=== PATIENT | male | born 1935 | race Caucasian/White ===

== ENCOUNTER 2021-08-25 11:21 | Inpatient (IN) | payer MEDICARE, SELFPAY ==
[2021-08-25] VITALS (36 sets, daily range): BP systolic 129–164; BP diastolic 69–116; PULSE 56–75; RESP 16–26; TEMP 36.4–37.1; O2SAT 94–100; BMI 28.8
--- NOTE | ~2021-08-25 | XR_ITS ---
EXAM: XR hip BI 2V w AP pelvis DATE: 08/25/2021 15:44 HISTORY: pain . COMPARISON: None available. FINDINGS: Slightly decreased mineralization. No fracture or dislocation. No lytic or blastic lesion. Degenerative changes in the lumbar spine. Mild bilateral hip osteoarthritis. Scattered enthesopathy. No erosion or periosteal change. Soft tissues within normal limits. IMPRESSION: No acute osseous finding in the pelvis or bilateral hips. Reviewed, dictated and finalized at location K.
--- NOTE | ~2021-08-25 | XR_ITS ---
EXAMINATION: XR knee LT 2V, XR knee RT 2V DATE: 08/26/2021 00:52 INDICATION: Bilateral knee pain TECHNIQUE: 1. AP and lateral views of the left knee were obtained. 2. AP and lateral views of the right knee were obtained. COMPARISON: None. FINDINGS: Alignment is normal at the bilateral knees. No fracture. At least mild joint space narrowing the medi al compartment of the left knee with small right and moderate-sized left knee joint effusions. Promin ent enthesophytes at the bilateral patellae and anterior tibial tuberosities. Vascular calcifications posterior to the bilateral knees. IMPRESSION: 1. Small right and moderate-sized left knee joint effusions. No acute osseous abnormality. Reviewed, dictated and finalized at location A. IMPRESSION: 1. Small right and moderate-sized left knee joint effusions. No acute osseous a bnormality.
--- NOTE | ~2021-08-25 | XR_ITS ---
EXAMINATION: XR chest 1V portable DATE: 08/25/2021 13:29 INDICATION: Weakness. TECHNIQUE: frontal view of the chest was obtained. COMPARISON: None FINDINGS: The lungs are clear with no focal airspace opacities, pulmonary edema, pleural effusion or pneumothor ax. The cardiomediastinal silhouette is normal. Age-indeterminate anterior left sixth and seventh rib fractures. Surgical clips in the epigastric region. IMPRESSION: 1. No acute cardiopulmonary disease. Reviewed, dictated and finalized at location A.
--- NOTE | ~2021-08-25 | CT_ITS ---
EXAMINATION: CT brain wo con DATE: 08/25/2021 15:52 INDICATION: weakness . TECHNIQUE: Computed tomography (CT) of the head was performed without intravenous contrast. The mA wa s adjusted according to patient size. Iterative reconstruction technique was employed. The dose-lengt h product was 605.33 mGy-cm. COMPARISON: None FINDINGS: No acute intracranial hemorrhage or extra-axial fluid collection. No hydrocephalus, mass, or herniation. No acute ischemic infarct. Unremarkable dural venous sinus attenuation. No acute osseous abnormality. Right mastoid effusion, otherwise the aerated spaces are clear. Old right MCA territory infarct. Moderate atrophy. Mild chronic white matter change. Atherosclerotic intracranial calcifications. Bilateral lens replacements. IMPRESSION: No acute intracranial process. Reviewed, dictated and finalized at location K.
--- NOTE | 2021-08-25 12:28 | ECG_ITS ---
Measurements Intervals [place] Rate: 59 P: 79 HI: 220 QRS: -50 QRSD: 101 T: 84 QT: 412 QTc: 409 Interpretive Statements SINUS BRADYCARDIA VENTRICULAR PREMATURE COMPLEXES LOW QRS VOLTAGE IN PRECORDIAL LEADS LEFT ANTERIOR FASCICULAR BLOCK CANNOT RULE OUT SEPTAL INFARCT, AGE INDETERMINATE BORDERLINE ST-T WAVE ABNORMALITY- HIGH LATERAL LEADS BASELINE ARTIFACT- I, II, AVR, AVL, AVF, V3 ABNORMAL ECG Electronically Signed On 08-25-2021 17:12:35 CDT by Fabian Edwards D.O.
[2021-08-25 13:12] LABS: Basophils Absolute Auto 0.1 K/mm3 (0.0-0.1); Basophils Percent Auto 0.4 % (0.2-1.2); Eosinophils Absolute Auto 0.2 K/mm3 (0-0.3); Eosinophils Percent Auto 1.9 % (0-4.4); Hematocrit 44.9 % (42.0-52.0); Hemoglobin 15.1 g/dL (14.0-18.0); Immature Granulocyte Absolute 0.08 K/mm3 (0.00-0.031); Immature Granulocyte Percent A 0.7 % (0-0.5); Lymphocytes Percent Auto 19.5 % (18.3-44.2); Mean Corpuscular HGB Conc 33.6 g/dl (32-36); Mean Corpuscular Hemoglobin 29.3 pg (26-34); Monocytes Percent Auto 8.4 % (2.6-8.5); Neutrophils Absolute Auto 8.2 K/mm3 (1.3-6.7); Neutrophils Percent Auto 69.1 % (45.5-73.1); Platelet Count Result 210 k/mm3 (150-375); Red Blood Count 5.16 M/mm3 (4.6-6.20); Red Cell Distribution Width 13.5 % (11.5-14.5); White Blood Count 11.8 K/mm3 (4.5-10.0)
[2021-08-25 13:21] LABS: Alanine Aminotransferase 18 U/L (6-50); Albumin Level 4.3 g/dL (3.5-5.1); Alkaline Phosphatase 82 U/L (38-126); Anion Gap 9 mmol/L (8-16); Aspartate Amino Transferase 24 U/L (17-59); Bilirubin,Total 0.6 mg/dL (0.2-1.3); Blood Urea Nitrogen 20 mg/dL (9-20); Carbon Dioxide 23 mmol/L (22-30); Chloride 106 mmol/L (98-107); Estimated CRCL calculation 40 ml/min; Estimated Glomerular Filt Rate 44; Glucose 97 mg/dL (65-110); Magnesium 1.9 mg/dL (1.6-2.3); Potassium 4.6 mmol/L (3.4-5.0); Sodium 138 mmol/L (137-145)
--- NOTE | 2021-08-25 13:25 | ED.GENADULT ---
HPI - General Adult General Chief complaint: Extremity Problem,Nontraumatic Stated complaint: bilateral leg pain Time Seen by Provider: 08/25/21 12:05 Source: patient, family and RN notes reviewed Mode of arrival: EMS Limitations: dementia History of Present Illness HPI narrative: This is an 86 year old male with history of hypetension, dementia who presents from home with family. His daughter is at bedside. She states her brother the normally takes care of patient is out of town. She states this morning she was unable to get patient out of bed because he was complaining of pain to his feet. She states every time she touched him he complained about pain. Patient is oriented to person and place. He denies any complaints. His daughter states patient is normally able to get himself out of bed but today he seems to be week. She states she could not get him to lift his legs. They deny recent fall. Patient denies chest pain, nausea, vomiting, abdominal pain, or shortness of breath. Related Data Home Medications Medication Instructions Recorded Confirmed aspirin [Ecotrin Low Strength] 81 mg PO DAILY 08/25/21 08/25/21 cetirizine 10 mg PO DAILY 08/25/21 08/25/21 donepezil 10 mg PO HS 08/25/21 08/25/21 metoprolol tartrate 12.5 mg PO BID 08/25/21 08/25/21 nitroglycerin 0.3 mg SUBLINGUAL Q5-15M PRN 08/25/21 08/25/21 polyethylene glycol 3350 [ClearLax] 17 g PO PRN PRN 08/25/21 08/25/21 zinc oxide-cod liver oil [Desitin] 1 ea TOPICAL DAILY PRN 08/25/21 08/25/21 Allergies Allergy/AdvReac Type Severity Reaction Status Date / Time morphine Allergy Unknown Verified 08/25/21 11:36 Review of Systems Review of Systems: All systems reviewed & are unremarkable except as noted in HPI and below PMFSH Past Medical History Medical History (Updated 08/25/21 @ 21:45 by Sharda Kraus MD) Dementia Hypertension Surgical History Surgical History (Updated 08/25/21 @ 13:31 by Sharda Kraus MD) Surgical history unknown Family History Family History (Updated 08/25/21 @ 18:56 by Christine Fan RN) Father Acute myocardial infarction Sibling Diabetes mellitus Sibling FH: pancreatic cancer Social History Social History Years smoked: 10 Smoking status: Former smoker Tobacco type: cigarettes, pipe and cigars Alcohol intake: never Substance use: never Spiritual care concerns: No Exam Const: General: no acute distress and alert Other: oriented to person and place Eyes: EOM: EOMs intact bilaterally Resp: Effort & Inspection: normal respiratory effort and no retractions Auscultation: clear to auscultation bilaterally Cardio: Rate: regular rate Rhythm: regular rhythm Other: palpable bilateral pedal pulses GI: GI Palp: Yes Soft to palpation, No Tenderness to palpation present (GI), No Guarding due to palpation present (GI), No Rigid due to palpation and No Hernia present Auscultation: normal bowel sounds Skin: General skin exam: normal color Rashes: no rashes Neuro: General: moves all extremities, no meningeal signs, no focal motor deficits and CN's II-XI intact bilaterally Other: patient shaking and unsteady with ambulation, needed assistance. Family reports he normally walks unassisted Extrem: General: no pedal edema Psych: Mental Status: mental status grossly normal Affect: normal affect Course Reevaluation(s) Reevaluation #1: Nursing staff and I attempted to ambulate patient. Initially he took 2 steps and wanted to stop. He then was able to walk longer but he needed assistance and he was shaky/unsteady. Family states he is usually able to walk unassisted. He will be admitted for observation. I discussed case with kenzie Davidson who will admit. Date: 08/25/21 Time: 21:46 Vital Signs Vital signs: Vital Signs Temperature 97.6 F 08/25/21 11:26 Pulse Rate 63 08/25/21 11:26 Respiratory Rate 25 H 08/25/21 11:26 Blood Pressure 157/78 H 08/25/21 11:26 Pulse Oximetry 10
[2021-08-25 13:26] LABS: INR 1.2; Prothrombin Time 15.1 Seconds (11.1-14.7)
[2021-08-25 13:27] LABS: Partial Thromboplastin Time 30.8 SECONDS (22.3-36.8)
[2021-08-25 13:30] LABS: NT Pro B Type Natriuretic Pept 1400 pg/mL (5-100)
[2021-08-25 13:46] LABS: SARS-CoV-2 RNA PCR Negative
[2021-08-25 14:21] LABS: Appearance Urine Clear (Clear); Bilirubin Urine Negative (Negative); Blood Urine 1+ (Negative); Color Urine Yellow (Yellow); Glucose Urine UA Negative (Negative); Ketones Urine Negative (Negative); Leukocyte Esterase Ur Negative LEU/UL (Negative); Nitrate Urine Negative (Negative); Protein Urine Negative (Negative); Specific Grav Ur 1.015 (1.001-1.035); Urobilinogen Urine 0.2 mg/dL (<2.0)
[2021-08-25 14:25] LABS: Squamous Epithelial Cell Urine Rare /hpf (Few); WBC Urine 0-3 /hpf
[2021-08-25 14:41] LABS: Add Urine Microscopic? YES
[2021-08-25] MEDS: SODIUM CHLORIDE 0.9% IV 1,000 ML 999 ML IV CONT (15:00)
--- NOTE | 2021-08-25 15:35 | PC.NURSE ---
PATIENT DAUGHTER TAKING HOME PATIENT CLOTHING.
--- NOTE | 2021-08-25 17:30 | PM.IMHP ---
H&P: HPI History of Present Illness Date/Time: 08/25/21 17:30 Chief Complaint: Leg pain. Narrative: This is an 86-year-old male with history of stroke, dementia, coronary artery disease, hypertension, kidney cancer, colon cancer, prostate cancer, and benign prostatic hyperplasia who presented to the emergency department via EMS for evaluation of leg pain. He is not able to provide an accurate history given his significant short-term memory loss. His and daughter at bedside provide additional history however his seems to be quite forgetful as well and his daughter is not typically his primary caregiver. The patient and his live with their son and [id number] who have been out of town and they are currently staying at their daughter's home. It is my understanding that the patient does need some help when getting out of bed in the morning however I was told that he ambulates freely and unassisted thereafter. This morning his daughter was unable to help him out of bed and when she grabbed his legs to lift them up he hollered out in pain. Labs were reviewed and they are pretty unremarkable aside from a white blood cell count of 11.8 and a creatinine of 1.50. Unfortunately he has not had labs sent this facility thus I am not certain of his baseline renal function. Brain CT, chest x-ray, and hip and pelvis imaging showed no acute findings. Staff in the ER encouraged him to ambulate and he was able to take 10 steps with assistance and said he could go no further. At the time my evaluation his only complaint is that of pain in his bottom due to lying on the gurney. He did not know that he was at the hospital and was unable to tell me in what contacts he was brought here today. He denied pain when questioned however on exam he did report pain in both of his knees both with flexion and extension. Family members deny that he has had any recent falls. No recent cold or flu symptoms. They have not noticed slurred speech, facial droop, or focal weakness. The patient has not complained of anything to them aside from this morning. Review of Systems Review of Systems: Unable to obtain accurately given his severe short-term memory loss. He stated no to every question asked of him. [facility] Past Medical History Medical History (Updated 08/25/21 @ 23:37 by Janki Davidson PA-C) Cancer of kidney Status post nephrectomy. No adjuvant treatment. Cerebrovascular accident with intracranial hemorrhage Colon cancer Status post partial colectomy. No adjuvant treatment. Coronary artery disease Dementia Hypertension Prostate cancer Surgical History Surgical History (Updated 08/25/21 @ 23:25 by Janki Davidson PA-C) History of cardiac catheterization History of cataract extraction History of coronary artery stent placement History of nephrectomy History of partial colectomy Family History Family History Father Acute myocardial infarction Sibling Diabetes mellitus Sibling FH: pancreatic cancer Social History Social History (Updated 08/25/21 @ 23:33 by Janki Davidson PA-C) Social History: Surrogate decision maker: Mian Driver, son. Code status: Full code. Years smoked: 10 Smoking status: Former smoker Tobacco type: cigarettes, pipe and cigars Alcohol intake: never Substance use: never Living arrangements: with family Additional occupation/education comments: Retired from the [employer]. Spiritual care concerns: No Meds Home Medications and Allergies Home Medications Medication Instructions Recorded Confirmed Type aspirin [Ecotrin Low Strength] 81 mg PO DAILY 08/25/21 08/25/21 History cetirizine 10 mg PO DAILY 08/25/21 08/25/21 History donepezil 10 mg PO HS 08/25/21 08/25/21 History metoprolol tartrate 12.5 mg PO BID 08/25/21 08/25/21 History nitroglycerin 0.3 mg SUBLINGUAL Q5-15M PRN 08/25/21 08/25/21 History polyethylene glycol 3350 [Matthew
--- NOTE | 2021-08-25 18:29 | ADMGEN ---
This patient, Brooks Driver, was admitted to Medical Room 249-01. Patient/family oriented to hospital policies and general routines including ID bracelet, bed and alarms, visiting hours, pain management, procedures, bathroom and other care routines, personal items, smoking policy, room service/diet, and visiting hours. Information on how to activate the Rapid Response Team has been discussed. Patient/Family are encouraged to report perceived risks to care and to ask questions if they do not understand what they are told or what they should do.
[2021-08-26] VITALS (14 sets, daily range): BP systolic 111–133; BP diastolic 42–72; PULSE 58–73; RESP 18–21; TEMP 36.1–37; O2SAT 97–100
[2021-08-26] MEDS: SODIUM CHLORIDE 0.9% IV 1,000 ML 100 ML IV CONT (00:32)
[2021-08-26] MEDS: DONEPEZIL HCL 10 MG TABLET PO ×2 (00:33→20:20)
[2021-08-26] MEDS: METOPROLOL TARTRATE 12.5 MG TABLET PO ×3 (00:33→20:20)
--- NOTE | 2021-08-26 03:52 | PC.NURSE ---
Addendum entered by Gracie Carrera RN 08/26/21 03:53: bladder scan was done at 2230 08/25/21 Original Note: bladder scanned pt, pt had 228 ml of urine
[2021-08-26 05:41] LABS: Hematocrit 41.9 % (42.0-52.0); Hemoglobin 13.6 g/dL (14.0-18.0); Mean Corpuscular HGB Conc 32.5 g/dl (32-36); Mean Corpuscular Hemoglobin 29.8 pg (26-34); Mean Corpuscular Volume 91.7 fl (80-100); Mean Platelet Volume 9.9 fl (7.4-10.4); Platelet Count Result 176 k/mm3 (150-375); Red Blood Count 4.57 M/mm3 (4.6-6.20); Red Cell Distribution Width 13.8 % (11.5-14.5); White Blood Count 8.7 K/mm3 (4.5-10.0)
[2021-08-26 05:50] LABS: Alanine Aminotransferase 16 U/L (6-50); Albumin Level 3.3 g/dL (3.5-5.1); Alkaline Phosphatase 63 U/L (38-126); Anion Gap 9 mmol/L (8-16); Aspartate Amino Transferase 23 U/L (17-59); Bilirubin,Total 0.7 mg/dL (0.2-1.3); Blood Urea Nitrogen 18 mg/dL (9-20); CRP 1.9 mg/dL (<1.0); Calcium 8.4 mg/dL (8.4-10.2); Carbon Dioxide 23 mmol/L (22-30); Chloride 114 mmol/L (98-107); Creatine Kinase 45 U/L (55-170); Estimated CRCL calculation 34 ml/min; Estimated Glomerular Filt Rate 48; Glucose 103 mg/dL (65-110); Magnesium 1.9 mg/dL (1.6-2.3); Potassium 5.4 mmol/L (3.4-5.0); Sodium 146 mmol/L (137-145)
[2021-08-26] MEDS: LORATADINE 10 MG TABLET PO (09:33)
[2021-08-26] MEDS: ASPIRIN 81 MG ENTERIC TABLET PO (09:33)
[2021-08-26] MEDS: SODIUM POLYSTYRENE SULFONONATE 15 GM/60 ML BTL PO (09:33)
--- NOTE | 2021-08-26 10:02 | PCSTNOTE ---
Please refer to the Bedside Swallow Evaluation in the EMR. Please note, silent aspiration cannot be ruled out at bedside.
--- NOTE | 2021-08-26 10:35 | PM.IMPN ---
Progress Note: A&P Assessment and Plan (1) Bilateral knee pain: Code(s): M25.561 - Pain in right knee; M25.562 - Pain in left knee Status: Acute Assessment and Plan: No gross abnormalities on physical exam. Family members deny recent falls. Radiographs ordered for completeness sake. (2) Generalized weakness: Code(s): R53.1 - Weakness Status: Acute Assessment and Plan: He reportedly is able to ambulate quite well unassisted. In the ER he refused to walk any more than 10 steps. No history to suggest underlying infection or focal lesion. PT/OT consulted; fall precautions initiated. (3) Elevated serum creatinine: Code(s): R79.89 - Other specified abnormal findings of blood chemistry Status: Acute Assessment and Plan: He appears a bit dry on exam thus will hydrate overnight. Records requested from primary care provider for review. Check bladder scan to ensure he is not retaining urine. (4) Leukocytosis: Code(s): D72.829 - Elevated white blood cell count, unspecified Status: Acute Assessment and Plan: No history or evidence to suggest active infection. (5) Dementia: Code(s): F03.90 - Unspecified dementia without behavioral disturbance Status: Acute Assessment and Plan: Continue donepezil. Initiate fall precautions. (6) Hypertension: Code(s): I10 - Essential (primary) hypertension Status: Acute Assessment and Plan: Blood pressures were reviewed and they have been running a bit high. Continue metoprolol and monitor daily. Subjective Date/time seen: 08/26/21 10:35 No complaints patient is pleasant Exam Narrative: General: Well-developed male appearing a bit younger than his stated age in the semi-Wolf position in bed in no acute distress. Weight 91.3 kg. BMI: 28.9. HEENT: PERRL, EOMI. Sclerae anicteric. Tacky mucous membranes. Oropharynx is crowded. Neck: Supple. No obvious JVD or bruits. Respiratory: Respirations are nonlabored and lungs are clear to auscultation. Cardiovascular: Regular rate and rhythm with S1-S2. Gastrointestinal: Abdomen is soft, nontender, and nondistended with positive bowel sounds. Skin: Warm and dry. No rash or lesions on limited exam. Extremities: No cyanosis or clubbing. Trace pretibial edema around the sock line. Radial and pedal pulses intact. Negative Milana sign bilaterally. Musculoskeletal: Patient complains of palpation over the anterior knees bilaterally. No swelling or bruising about the knees. No pain with passive range of motion in the hips. Strength 3/5 in bilateral hip flexors, likely due to lack of effort. Neurological: Alert to name and date of only. Cranial nerves 2-12 are grossly intact. Speech is occasionally stuttering which family members state is his baseline. Speech is not garbled. No pronator drift. He did not understand how to perform [id number] and rapid alternating movements. Psychiatric: Pleasantly confused and cooperative. Objective Data Vital Signs Vital Signs: Vital Signs - 24 hr 08/25/21 11:26 08/25/21 11:34 08/25/21 11:35 Temperature 97.6 F Pulse Rate 63 63 Respiratory Rate 25 H 26 H Blood Pressure 157/78 H 157/78 H Pulse Oximetry 100 100 99 08/25/21 11:45 08/25/21 11:47 08/25/21 12:00 Temperature Pulse Rate 60 59 L Respiratory Rate Blood Pressure 147/71 H Pulse Oximetry 100 99 100 08/25/21 12:02 08/25/21 12:15 08/25/21 12:17 Temperature Pulse Rate 62 59 L 61 Respiratory Rate Blood Pressure 153/70 H 163/83 H Pulse Oximetry 100 100 99 08/25/21 12:30 08/25/21 12:45 08/25/21 12:48 Temperature Pulse Rate 63 61 56 L Respiratory Rate Blood Pressure 149/70 H Pulse Oximetry 100 08/25/21 13:02 08/25/21 13:17 08/25/21 13:32 Temperature Pulse Rate Respiratory Rate Blood Pressure 149/74 H 155/82 H 155/81 H Pulse Oximetry 08/25/21 13:47
[2021-08-27] VITALS (15 sets, daily range): BP systolic 110–128; BP diastolic 51–95; PULSE 62–75; RESP 18–21; TEMP 36.4–37.6; O2SAT 99–100
[2021-08-27 08:57] LABS: Anion Gap 7 mmol/L (8-16); Blood Urea Nitrogen 20 mg/dL (9-20); Calcium 8.5 mg/dL (8.4-10.2); Carbon Dioxide 24 mmol/L (22-30); Chloride 107 mmol/L (98-107); Estimated CRCL calculation 37 ml/min; Estimated Glomerular Filt Rate 52; Glucose 100 mg/dL (65-110); Potassium 4.8 mmol/L (3.4-5.0); Sodium 138 mmol/L (137-145)
[2021-08-27] MEDS: METOPROLOL TARTRATE 12.5 MG TABLET PO ×2 (09:38→20:24)
[2021-08-27] MEDS: LORATADINE 10 MG TABLET PO (09:39)
[2021-08-27] MEDS: ASPIRIN 81 MG ENTERIC TABLET PO (09:39)
--- NOTE | 2021-08-27 11:37 | PM.IMPN ---
Progress Note: A&P Assessment and Plan (1) Bilateral knee pain: Code(s): M25.561 - Pain in right knee; M25.562 - Pain in left knee Status: Acute Assessment and Plan: No gross abnormalities on physical exam. Family members deny recent falls. Radiographs ordered for completeness sake. (2) Generalized weakness: Code(s): R53.1 - Weakness Status: Acute Assessment and Plan: He reportedly is able to ambulate quite well unassisted. In the ER he refused to walk any more than 10 steps. No history to suggest underlying infection or focal lesion. PT/OT consulted; fall precautions initiated. (3) Elevated serum creatinine: Code(s): R79.89 - Other specified abnormal findings of blood chemistry Status: Acute Assessment and Plan: He appears a bit dry on exam thus will hydrate overnight. Records requested from primary care provider for review. Check bladder scan to ensure he is not retaining urine. (4) Leukocytosis: Code(s): D72.829 - Elevated white blood cell count, unspecified Status: Acute Assessment and Plan: No history or evidence to suggest active infection. (5) Dementia: Code(s): F03.90 - Unspecified dementia without behavioral disturbance Status: Acute Assessment and Plan: Continue donepezil. Initiate fall precautions. (6) Hypertension: Code(s): I10 - Essential (primary) hypertension Status: Acute Assessment and Plan: Blood pressures were reviewed and they have been running a bit high. Continue metoprolol and monitor daily. Subjective Date/time seen: 08/27/21 11:37 No new complaints Exam Narrative: General: Well-developed male appearing a bit younger than his stated age in the semi-Wolf position in bed in no acute distress. Weight 91.3 kg. BMI: 28.9. HEENT: PERRL, EOMI. Sclerae anicteric. Tacky mucous membranes. Oropharynx is crowded. Neck: Supple. No obvious JVD or bruits. Respiratory: Respirations are nonlabored and lungs are clear to auscultation. Cardiovascular: Regular rate and rhythm with S1-S2. Gastrointestinal: Abdomen is soft, nontender, and nondistended with positive bowel sounds. Skin: Warm and dry. No rash or lesions on limited exam. Extremities: No cyanosis or clubbing. Trace pretibial edema around the sock line. Radial and pedal pulses intact. Negative Milana sign bilaterally. Musculoskeletal: Patient complains of palpation over the anterior knees bilaterally. No swelling or bruising about the knees. No pain with passive range of motion in the hips. Strength 3/5 in bilateral hip flexors, likely due to lack of effort. Neurological: Alert to name and date of only. Cranial nerves 2-12 are grossly intact. Speech is occasionally stuttering which family members state is his baseline. Speech is not garbled. No pronator drift. He did not understand how to perform [id number] and rapid alternating movements. Psychiatric: Pleasantly confused and cooperative. Objective Data Vital Signs Vital Signs: Vital Signs - 24 hr 08/26/21 12:00 08/26/21 14:00 08/26/21 16:00 Temperature 98.6 F Pulse Rate 60 58 L 66 Respiratory Rate 18 Blood Pressure 111/56 L Pulse Oximetry 100 08/26/21 16:22 08/26/21 16:52 08/26/21 20:00 Temperature Pulse Rate 66 Respiratory Rate Blood Pressure 119/62 Pulse Oximetry 97 08/26/21 20:20 08/26/21 22:00 08/27/21 00:00 Temperature 97.4 F L Pulse Rate 67 67 72 Respiratory Rate 21 H Blood Pressure 133/61 Pulse Oximetry 100 08/27/21 04:00 08/27/21 06:00 08/27/21 08:03 Temperature 97.7 F Pulse Rate 67 69 62 Respiratory Rate 21 H Blood Pressure 123/60 Pulse Oximetry 100 08/27/21 09:38 08/27/21 09:40 Temperature Pulse Rate 72 Respiratory Rate 20 Blood Pressure Pulse Oximetry 100 Intake/Output Intake/Output: Intake & Output 08/24/21 08/25/21 08/26/21 08/27/21 23:59 23:
[2021-08-27] MEDS: DONEPEZIL HCL 10 MG TABLET PO (20:24)
[2021-08-28] VITALS (13 sets, daily range): BP systolic 75–120; BP diastolic 41–57; PULSE 52–72; RESP 14–20; TEMP 36.3–37.1; O2SAT 96–100; BMI 10.0
--- NOTE | 2021-08-28 10:00 | PM.DS ---
DS: Admitting Diagnosis Discharge Date August 28, 2021 Admitting Diagnosis failure to thrive, weakness DS: Discharge Diagnosis Discharge Diagnosis (1) Bilateral knee pain: Code(s): M25.561 - Pain in right knee; M25.562 - Pain in left knee Status: Acute Assessment and Plan: x-rays noted no intervention required at this time (2) Generalized weakness: Code(s): R53.1 - Weakness Status: Acute Assessment and Plan: Improved. Question etiology. According sinus complaining of some pain or least acting like he was in pain however today is a little 14feet with a wheeled walker without any complaints. according the nursing staff (3) Elevated serum creatinine: Code(s): R79.89 - Other specified abnormal findings of blood chemistry Status: Acute Assessment and Plan: likely from dehydration. Serum creatinine improved. (4) Leukocytosis: Code(s): D72.829 - Elevated white blood cell count, unspecified Status: Acute Assessment and Plan: No history or evidence to suggest active infection. (5) Dementia: Code(s): F03.90 - Unspecified dementia without behavioral disturbance Status: Acute Assessment and Plan: Continue donepezil. Initiate fall precautions. (6) Hypertension: Code(s): I10 - Essential (primary) hypertension Status: Acute Assessment and Plan: Blood pressures were reviewed and they have been running a bit high. Continue metoprolol and monitor daily. Plan failure to thrive, weakness DS: Summary Hospital Course Reason for hospitalization: patient was admitted for weakness and possible lower extremity pain. Evaluation did not reveal anything significant. He was mildly dehydrated when he came in with an elevated white count likely from dehydration and concentration as well. Patient was given some IV fluids and labs improved. Today I spoke with the son and said that he was wincing and acting like he was having pain when standing and getting out of bed at home is Friday I spoke with the nursing staff today they said he was walked 14feet with a wheeled walker and did not really complain of much pain. I question if this is just worsening of his dementia. Hospital Course: see above Time Spent with Patient Time attestation: Total time spent providing and/or coordinating discharge services: Exam Narrative: General: Well-developed male appearing a bit younger than his stated age in the semi-Wolf position in bed in no acute distress. Weight 91.3 kg. BMI: 28.9. HEENT: PERRL, EOMI. Sclerae anicteric. Tacky mucous membranes. Oropharynx is crowded. Neck: Supple. No obvious JVD or bruits. Respiratory: Respirations are nonlabored and lungs are clear to auscultation. Cardiovascular: Regular rate and rhythm with S1-S2. Gastrointestinal: Abdomen is soft, nontender, and nondistended with positive bowel sounds. Skin: Warm and dry. No rash or lesions on limited exam. Extremities: No cyanosis or clubbing. Trace pretibial edema around the sock line. Radial and pedal pulses intact. Negative Milana sign bilaterally. Musculoskeletal: Patient complains of palpation over the anterior knees bilaterally. No swelling or bruising about the knees. No pain with passive range of motion in the hips. Strength 3/5 in bilateral hip flexors, likely due to lack of effort. Neurological: Alert to name and date of only. Cranial nerves 2-12 are grossly intact. Speech is occasionally stuttering which family members state is his baseline. Speech is not garbled. No pronator drift. He did not understand how to perform [id number] and rapid alternating movements. Psychiatric: Pleasantly confused and cooperative. Discharge Plan Discharge Attending physician on discharge: Edwin Dailey Discharging Clinician: Edwin Dailey. Patient Disposition: Home Health Service Activity: no preference Diet: as
[2021-08-28] MEDS: LORATADINE 10 MG TABLET PO (10:02)
[2021-08-28] MEDS: METOPROLOL TARTRATE 12.5 MG TABLET PO (10:02)
[2021-08-28] MEDS: ZINC OXIDE 20% OINT 30 GM TUBE 1 APPLIC TOPICAL (10:03)
[2021-08-28] MEDS: ASPIRIN 81 MG ENTERIC TABLET PO (10:03)
--- NOTE | 2021-08-28 14:50 | PM.IMPN ---
Progress Note: A&P Assessment and Plan (1) Bilateral knee pain: Code(s): M25.561 - Pain in right knee; M25.562 - Pain in left knee Status: Acute Assessment and Plan: x-rays noted no intervention required at this time (2) Generalized weakness: Code(s): R53.1 - Weakness Status: Acute Assessment and Plan: Improved. Question etiology. According sinus complaining of some pain or least acting like he was in pain however today is a little 14feet with a wheeled walker without any complaints. according the nursing staff (3) Elevated serum creatinine: Code(s): R79.89 - Other specified abnormal findings of blood chemistry Status: Acute Assessment and Plan: likely from dehydration. Serum creatinine improved. (4) Leukocytosis: Code(s): D72.829 - Elevated white blood cell count, unspecified Status: Acute Assessment and Plan: No history or evidence to suggest active infection. (5) Dementia: Code(s): F03.90 - Unspecified dementia without behavioral disturbance Status: Acute Assessment and Plan: Continue donepezil. Initiate fall precautions. (6) Hypertension: Code(s): I10 - Essential (primary) hypertension Status: Acute Assessment and Plan: Blood pressures were reviewed and they have been running a bit high. adjust bp meds 2/2 orthostasis (7) Orthostatic hypotension: Code(s): I95.1 - Orthostatic hypotension Status: Acute Assessment and Plan: decrease bp med and recheck possible dc tomorrow if this resolves Plan failure to thrive, weakness Subjective Date/time seen: 08/28/21 14:50 dc help up because patient has orthostatic hypotension w mild dizziness Exam Narrative: General: Well-developed male appearing a bit younger than his stated age in the semi-Wolf position in bed in no acute distress. Weight 91.3 kg. BMI: 28.9. HEENT: PERRL, EOMI. Sclerae anicteric. Tacky mucous membranes. Oropharynx is crowded. Neck: Supple. No obvious JVD or bruits. Respiratory: Respirations are nonlabored and lungs are clear to auscultation. Cardiovascular: Regular rate and rhythm with S1-S2. Gastrointestinal: Abdomen is soft, nontender, and nondistended with positive bowel sounds. Skin: Warm and dry. No rash or lesions on limited exam. Extremities: No cyanosis or clubbing. Trace pretibial edema around the sock line. Radial and pedal pulses intact. Negative Milana sign bilaterally. Musculoskeletal: Patient complains of palpation over the anterior knees bilaterally. No swelling or bruising about the knees. No pain with passive range of motion in the hips. Strength 3/5 in bilateral hip flexors, likely due to lack of effort. Neurological: Alert to name and date of only. Cranial nerves 2-12 are grossly intact. Speech is occasionally stuttering which family members state is his baseline. Speech is not garbled. No pronator drift. He did not understand how to perform [id number] and rapid alternating movements. Psychiatric: Pleasantly confused and cooperative. Objective Data Vital Signs Vital Signs: Vital Signs - 24 hr 08/27/21 16:03 08/27/21 18:38 08/27/21 20:00 Temperature 99.6 F 97.5 F L Pulse Rate 66 65 Respiratory Rate 20 Blood Pressure 110/95 H Pulse Oximetry 100 Oxygen Delivery 08/27/21 20:34 08/27/21 20:24 08/27/21 20:28 Temperature 97.5 F L Pulse Rate 65 66 65 Respiratory Rate 20 Blood Pressure 110/95 H Pulse Oximetry 100 99 Oxygen Delivery Room Air 08/27/21 20:33 08/27/21 20:33 08/27/21 20:00 Temperature 97.5 F L 97.5 F L Pulse Rate 70 75 70 Respiratory Rate 20 20 Blood Pressure 121/51 L 123/64 Pulse Oximetry 99 100 Oxygen Delivery 08/28/21 00:00 08/28/21 05:59 08/28/21 04:00 Temperature 98 F Pulse Rate 60 72 60 Respiratory Rate 20 Blood Pressure 110/57 L Pulse Oximetry 99 Oxygen Delivery
[2021-08-28] MEDS: DONEPEZIL HCL 10 MG TABLET PO (20:00)
[2021-08-29] VITALS (14 sets, daily range): BP systolic 108–146; BP diastolic 54–86; PULSE 60–94; RESP 17–18; TEMP 36.4–36.8; O2SAT 95–99
[2021-08-29] MEDS: LORATADINE 10 MG TABLET PO (08:52)
[2021-08-29] MEDS: ASPIRIN 81 MG ENTERIC TABLET PO (08:52)
--- NOTE | 2021-08-29 15:39 | PM.IMPN ---
Progress Note: A&P Assessment and Plan (1) Bilateral knee pain: Code(s): M25.561 - Pain in right knee; M25.562 - Pain in left knee Status: Acute Assessment and Plan: x-rays noted no intervention required at this time 08/29/2021 interval history: 86-year-old male admitted with generalized weak and bilateral knee pain today patient he continue to have a pain in his lower extremity, nursing staff assist the patient to stand up and ambulate however patient was quite hypotension his hypertensive medication on hold as patient has orthostatic, will add midodrine 2.5 mg t.i.d. will monitor will have a PT OT work with the patient and further recommendation to follow, patient will need placement as family is unable to take care of him. (2) Generalized weakness: Code(s): R53.1 - Weakness Status: Acute Assessment and Plan: Improved. Question etiology. According sinus complaining of some pain or least acting like he was in pain however today is a little 14feet with a wheeled walker without any complaints. according the nursing staff (3) Elevated serum creatinine: Code(s): R79.89 - Other specified abnormal findings of blood chemistry Status: Acute Assessment and Plan: likely from dehydration. Serum creatinine improved. (4) Leukocytosis: Code(s): D72.829 - Elevated white blood cell count, unspecified Status: Acute Assessment and Plan: No history or evidence to suggest active infection. (5) Dementia: Code(s): F03.90 - Unspecified dementia without behavioral disturbance Status: Acute Assessment and Plan: Continue donepezil. Initiate fall precautions. (6) Hypertension: Code(s): I10 - Essential (primary) hypertension Status: Acute Assessment and Plan: Blood pressures were reviewed and they have been running a bit high. adjust bp meds 2/2 orthostasis (7) Orthostatic hypotension: Code(s): I95.1 - Orthostatic hypotension Status: Acute Assessment and Plan: decrease bp med and recheck possible dc tomorrow if this resolves Plan failure to thrive, weakness Subjective Date/time seen: 08/29/21 15:39 08/29/2021 interval history: 86-year-old male admitted with generalized weak and bilateral knee pain today patient he continue to have a pain in his lower extremity, nursing staff assist the patient to stand up and ambulate however patient was quite hypotension his hypertensive medication on hold as patient has orthostatic, will add midodrine 2.5 mg t.i.d. will monitor will have a PT OT work with the patient and further recommendation to follow, patient will need placement as family is unable to take care of him. Review of Systems Review of Systems: Unable to obtain accurately given his severe short-term memory loss. He stated no to every question asked of him. Exam Narrative: elderly frail Patient is comfortable, NAD HEENT: eyes are clear and none icteric LUNGS: normal respiratory effort ABD: not distended Lower extremities: no edema SKIN: nonjaundiced Neuro: grossly intact. Objective Data Vital Signs Vital Signs: Vital Signs - 24 hr 08/28/21 16:00 08/28/21 19:48 08/28/21 19:49 Temperature 98.7 F Pulse Rate 58 L 63 Respiratory Rate 14 Blood Pressure 120/50 L 120/50 L Pulse Oximetry 96 Oxygen Delivery 08/28/21 20:03 08/28/21 20:00 08/28/21 20:00 Temperature Pulse Rate 59 L Respiratory Rate Blood Pressure 118/56 L Pulse Oximetry Oxygen Delivery Room Air 08/29/21 00:00 08/29/21 04:00 08/29/21 06:00 Temperature 98.3 F Pulse Rate 64 64 67 Respiratory Rate 18 Blood Pressure 129/86 Pulse Oximetry 95 Oxygen Delivery 08/29/21 08:00 08/29/21 08:55 08/29/21 13:30 Temperature Pulse Rate 62 63 Respiratory Rate Blood Pressure 114/67 Pulse Oximetry Oxygen Delivery Room Air 08/29/21 13:30 08/29/21
[2021-08-29] MEDS: MIDODRINE HCL 2.5 MG TABLET PO (16:59)
[2021-08-29] MEDS: DONEPEZIL HCL 10 MG TABLET PO (20:37)
[2021-08-30] VITALS (7 sets, daily range): BP systolic 109–140; BP diastolic 65–76; PULSE 57–68; RESP 18; TEMP 36.1; O2SAT 99
[2021-08-30] MEDS: MIDODRINE HCL 2.5 MG TABLET PO (07:47)
[2021-08-30] MEDS: LORATADINE 10 MG TABLET PO (07:47)
[2021-08-30] MEDS: ASPIRIN 81 MG ENTERIC TABLET PO (07:47)
--- NOTE | 2021-08-30 12:26 | PM.DS ---
DS: Admitting Diagnosis Discharge Date 08/30/2021 Admitting Diagnosis lower extremity weakness DS: Discharge Diagnosis Discharge Diagnosis (1) Bilateral knee pain: Code(s): M25.561 - Pain in right knee; M25.562 - Pain in left knee Status: Acute Assessment and Plan: x-rays noted no intervention required at this time 08/29/2021 interval history: 86-year-old male admitted with generalized weak and bilateral knee pain today patient he continue to have a pain in his lower extremity, nursing staff assist the patient to stand up and ambulate however patient was quite hypotension his hypertensive medication on hold as patient has orthostatic, will add midodrine 2.5 mg t.i.d. will monitor will have a PT OT work with the patient and further recommendation to follow, patient will need placement as family is unable to take care of him. (2) Generalized weakness: Code(s): R53.1 - Weakness Status: Acute Assessment and Plan: Improved. Question etiology. According sinus complaining of some pain or least acting like he was in pain however today is a little 14feet with a wheeled walker without any complaints. according the nursing staff (3) Elevated serum creatinine: Code(s): R79.89 - Other specified abnormal findings of blood chemistry Status: Acute Assessment and Plan: likely from dehydration. Serum creatinine improved. (4) Leukocytosis: Code(s): D72.829 - Elevated white blood cell count, unspecified Status: Acute Assessment and Plan: No history or evidence to suggest active infection. (5) Dementia: Code(s): F03.90 - Unspecified dementia without behavioral disturbance Status: Acute Assessment and Plan: Continue donepezil. Initiate fall precautions. (6) Hypertension: Code(s): I10 - Essential (primary) hypertension Status: Acute Assessment and Plan: Blood pressures were reviewed and they have been running a bit high. adjust bp meds 2/2 orthostasis (7) Orthostatic hypotension: Code(s): I95.1 - Orthostatic hypotension Status: Acute Assessment and Plan: decrease bp med and recheck possible dc tomorrow if this resolves Plan failure to thrive, weakness DS: Summary Hospital Course Reason for hospitalization: Chief Complaint: Leg pain. Narrative: This is an 86-year-old male with history of stroke, dementia, coronary artery disease, hypertension, kidney cancer, colon cancer, prostate cancer, and benign prostatic hyperplasia who presented to the emergency department via EMS for evaluation of leg pain. He is not able to provide an accurate history given his significant short-term memory loss. His and daughter at bedside provide additional history however his seems to be quite forgetful as well and his daughter is not typically his primary caregiver. The patient and his live with their son and [id number] who have been out of town and they are currently staying at their daughter's home. It is my understanding that the patient does need some help when getting out of bed in the morning however I was told that he ambulates freely and unassisted thereafter. This morning his daughter was unable to help him out of bed and when she grabbed his legs to lift them up he hollered out in pain. Labs were reviewed and they are pretty unremarkable aside from a white blood cell count of 11.8 and a creatinine of 1.50. Unfortunately he has not had labs sent this facility thus I am not certain of his baseline renal function. Brain CT, chest x-ray, and hip and pelvis imaging showed no acute findings. Staff in the ER encouraged him to ambulate and he was able to take 10 steps with assistance and said he could go no further. At the time my evaluation his only complaint is that of pain in his bottom due to lying on the gurney. He did not know that he was at the hospital and was unable to tell me in what contact
== END 2021-08-30 13:28 | disposition home health service (06) | DRG 312 ==
LOC: ANHED 12:05 → ANH2MED 16:58
PROVIDERS: Chiropractor; Physician Assistant; Admitting Provider Family Medicine; Emergency Provider General Practice; Visit Provider Family Medicine
DX: I95.1 Orthostatic hypotension (principal); M25.562 Pain in left knee; M25.561 Pain in right knee; R62.7 Adult failure to thrive; Z68.27 Body mass index [BMI] 27.0-27.9, adult; E86.0 Dehydration; D72.829 Elevated white blood cell count, unspecified; F03.90 Unspecified dementia, unspecified severity, without behavioral disturbance, psychotic disturbance, mood disturbance, and anxiety; I10 Essential (primary) hypertension; N40.0 Benign prostatic hyperplasia without lower urinary tract symptoms; I25.10 Atherosclerotic heart disease of native coronary artery without angina pectoris; Z86.73 Personal history of transient ischemic attack (TIA), and cerebral infarction without residual deficits; Z85.038 Personal history of other malignant neoplasm of large intestine; Z85.46 Personal history of malignant neoplasm of prostate; Z85.528 Personal history of other malignant neoplasm of kidney; Z98.42 Cataract extraction status, left eye; Z98.41 Cataract extraction status, right eye; Z95.5 Presence of coronary angioplasty implant and graft; Z87.891 Personal history of nicotine dependence
CPT/HCPCS: 36415; 70450; 71045; 73521; 73560; 80048; 80053; 81001; 82550; 83735; 83880; 84443; 85025; 85027; 85610; 85730; 86140; 92610; 93005; 96360; 97110; 97162; 97165; 97530; 99285; A9270; C9803; G0378; J7030; U0003; U0005

== ENCOUNTER 2021-08-31 22:50 | Emergency (ER) | payer MEDICARE, SELFPAY ==
[2021-08-31 23:27] VITALS: BP 142/79; PULSE 77; RESP 16; TEMP 36.7; O2SAT 98
[2021-08-31 23:58] LABS: RBC Urine 0-2 /hpf (0-2)
[2021-09-01 00:01] LABS: Add Urine Microscopic? YES
[2021-09-01 00:02] LABS: Appearance Urine Slightly Cloudy (Clear); Color Urine Yellow (Yellow); Glucose Urine UA Negative (Negative); Ketones Urine Negative (Negative); Protein Urine 3+ mg/dL (Negative); Specific Grav Ur 1.015 (1.001-1.035)
[2021-09-01 00:03] LABS: Bilirubin Urine Negative (Negative); Blood Urine 2+ (Negative); Leukocyte Esterase Ur 2+ LEU/UL (Negative); Nitrate Urine Negative (Negative)
[2021-09-01] MEDS: FLUCONAZOLE 150 MG TABLET PO (01:39)
--- NOTE | 2021-09-01 01:43 | ED.MALEGU ---
HPI - Male Genitourinary General Chief complaint: Urogenital-Male Stated complaint: groin pain Time Seen by Provider: 09/01/21 00:23 History of Present Illness HPI Narrative: Patient is an 86-year-old male who presents ER with pain around the penis when he urinates. Patient has dementia and cannot give a history so it was obtained from family at bedside. Symptoms just began tonight. Patient had recent hospitalization where he had to be catheterized. No fevers or chills or sweats. Patient wears diapers due to mobility issues. Therefore patient has reported some lower abdominal discomfort at times but he cannot describe it. They are concerned he may have a UTI. Related Data Home Medications Medication Instructions Recorded Confirmed aspirin 81 mg tablet,delayed 81 mg PO DAILY 08/25/21 08/25/21 release (Ecotrin Low Strength) cetirizine 10 mg tablet 10 mg PO DAILY 08/25/21 08/25/21 donepezil 10 mg tablet 10 mg PO HS 08/25/21 08/25/21 metoprolol tartrate 25 mg tablet 12.5 mg PO BID 08/25/21 08/25/21 nitroglycerin 0.3 mg sublingual 0.3 mg sublingual Q5-15M PRN Chest 08/25/21 08/25/21 tablet Pain polyethylene glycol 3350 17 gram 17 g PO PRN PRN Constipation 08/25/21 08/25/21 oral powder packet (ClearLax) zinc oxide-cod liver oil 40 % 1 ea topical DAILY PRN Diaper Rash 08/25/21 08/25/21 topical ointment Allergies Allergy/AdvReac Type Severity Reaction Status Date / Time morphine Allergy Unknown Verified 08/25/21 11:36 Review of Systems Review of Systems: ROS unobtainable: Yes unobtainable due to mental status PMFSH Past Medical History Medical History (Updated 09/01/21 @ 01:46 by Andrea Hidalgo MD) Cancer of kidney Status post nephrectomy. No adjuvant treatment. Cerebrovascular accident with intracranial hemorrhage Colon cancer Status post partial colectomy. No adjuvant treatment. Coronary artery disease Dementia Hypertension Prostate cancer Surgical History Surgical History (Updated 08/25/21 @ 23:25 by Janki Davidson PA-C) History of cardiac catheterization History of cataract extraction History of coronary artery stent placement History of nephrectomy History of partial colectomy Family History Family History Father Acute myocardial infarction Sibling Diabetes mellitus Sibling FH: pancreatic cancer Social History Social History (Updated 08/25/21 @ 23:33 by Janki Davidson PA-C) Social History: Surrogate decision maker: Mian Driver, juanita. Code status: Full code. Years smoked: 10 Smoking status: Former smoker Tobacco type: cigarettes, pipe and cigars Alcohol intake: never Substance use: never Additional occupation/education comments: Retired from the [employer]. Spiritual care concerns: No Exam Narrative: GENERAL: Well-appearing, well-nourished, and in no acute distress. HEAD: Normocephalic, atraumatic. ABDOMEN: Soft, nontender, nondistended. : Uncircumcised penis. Very mild phimosis. The foreskin when retracted is red and swollen. The glans of the penis is inflamed and irritated with the odor of yeast. There is some cracks in the skin at the 9 o'clock position of the glans. EXTREMITIES: Normal range of motion. No edema. SKIN: Warm, dry, no rash. NEURO: No focal deficits. Alert and oriented x3. PSYCH: Normal mood and affect. Course Course Emergency Course: Discussed penile and foreskin care with the patient's family. Demonstrated how to properly retract and then reduce the foreskin around the head of the penis. They were able to see the areas of irritation and inflammation that are causing patient's discomfort. Discussed treatment plan with one-time dose of fluconazole and then topical clotrimazole. Follow-up with PCP but may also want to follow-up with urology if there is recurrent issue. Vital Signs Vital signs: Vital Signs Temperature 98.1 F 08/31/21 23:27 Pulse Rate 77
[2021-09-01 01:53] VITALS: BP 165/93; PULSE 83; RESP 18; O2SAT 100
== END 2021-09-01 02:01 | disposition home or self-care (01) ==
PROVIDERS: Emergency Provider Emergency Medicine; PCP Student in an Organized Health Care Education/Training Program
DX: N48.1 Balanitis (principal); I25.10 Atherosclerotic heart disease of native coronary artery without angina pectoris; F03.90 Unspecified dementia, unspecified severity, without behavioral disturbance, psychotic disturbance, mood disturbance, and anxiety; I10 Essential (primary) hypertension; Z85.038 Personal history of other malignant neoplasm of large intestine; Z85.528 Personal history of other malignant neoplasm of kidney
CPT/HCPCS: 81001; 99283; A9270